=== PATIENT | male | born 1985 | race Caucasian/White ===

== ENCOUNTER 2018-10-25 16:15 | Emergency (ER) | payer MEDICAID ==
[~2018-10-25] VITALS: Ht 182.9 cm; Wt 70.5 kg
[2018-10-25 16:25] VITALS: Ht 182.9 cm; Wt 70.5 kg
[2018-10-25] MEDS ORDERED: ATIVAN1 MG PO ×2 (16:27→19:48)
[2018-10-25 16:52] LABS: BASOPHILS 0.2 % (0-2); EOSINOPHILS 0 % (0-7); HEMATOCRIT 41.6 % (42.0-54.0); HEMOGLOBIN 14.8 g/dL (13.5-17.5); IMMATURE GRANULOCYTES 0.2 % (0-5); MCHC 35.6 g/dL (31.0-37.0); MCV 92.9 fL (80.0-100.0); MEAN PLATELET VOLUME 9.4 fL (7.4-10.4); MONOCYTES 6.9 % (2-11); NEUTROPHILS 73.7 % (40-80); RBC 4.48 10x6/uL (4.20-6.10); RDW 12.8 % (11.5-14.5); WBC 9.7 10x3/uL (4.8-10.8)
[2018-10-25 17:01] LABS: PLATELET COUNT 248 10x3/uL (130-400)
[2018-10-25 17:13] LABS: ALKALINE PHOSPHATASE 121 U/L (46-116); ALT (SGPT) 17 U/L (10-68); BILIRUBIN - TOTAL 0.53 mg/dL (0.2-1.3); CALC OSMOLALITY 272 mosm/kg (275-300); CALCIUM 9.1 mg/dL (8.5-10.1); CARBON DIOXIDE 27.2 mmol/L (21.0-32.0); CHLORIDE - SERUM 97 mmol/L (98-107); CREATININE - SERUM 0.9 mg/dL (0.6-1.3); GLUCOSE 88 mg/dL (74-106); POTASSIUM - SERUM 4.1 mmol/L (3.5-5.1); PROTEIN - SERUM 7.9 g/dL (6.4-8.2); SODIUM 136 mmol/L (136-145); UREA NITROGEN 19 mg/dL (7-18); eGFR NON AFRICAN AMERICAN > 90 mL/min (90-120)
[2018-10-25 18:30] LABS: UDS - AMPHET NEGATIVE QUAL (NEGATIVE); UDS - BARB NEGATIVE QUAL (NEGATIVE); UDS - BENZO NEGATIVE QUAL (NEGATIVE); UDS - COCAINE NEGATIVE QUAL (NEGATIVE); UDS - OPIATE NEGATIVE QUAL (NEGATIVE); UDS - PCP NEGATIVE QUAL (NEGATIVE); UDS - THC NEGATIVE QUAL (NEGATIVE)
[2018-10-25 18:49] LABS: APPEARANCE CLEAR (CLEAR); COLOR YELLOW (YELLOW); GLUCOSE NEGATIVE (NEGATIVE); KETONE MODERATE mg/dL (NEGATIVE); NITRITE NEGATIVE (NEGATIVE); PROTEIN TRACE mg/dL (NEGATIVE)
[2018-10-25 18:50] LABS: BACTERIA FEW /hpf (NONE SEEN); BILIRUBIN NEGATIVE (NEGATIVE); EPITHELIAL CELLS 0-5 /hpf (0-5); RED CELLS - URINE 0-5 /hpf (0-5); UROBILINOGEN NORMAL (NORMAL); WHITE CELLS - URINE 0-5 /hpf (0-5)
[2018-10-25 18:51] LABS: MUCUS <1+ /lpf (NONE SEEN)
[2018-10-25] MEDS ORDERED: PHENERGAN25 M1 PO (19:48)
[2018-10-25] MEDS ORDERED: TORADOL10 MG PO (19:48)
[2018-10-25 20:05] VITALS: BP 136/86
[2018-11-01] MEDS ORDERED: ZYRTEC10 MG PO (14:46)
[2018-11-01] MEDS ORDERED: THEREMS-M1 TAB PO (14:46)
[2018-11-01] MEDS ORDERED: IBUPROFEN800 MG PO (14:46)
== END 2018-10-25 20:05 | disposition home or self-care (01) ==
LOC: D.ER 16:15
PROVIDERS: Emergency Medicine
DX: S62.307A Unspecified fracture of fifth metacarpal bone, left hand, initial encounter for closed fracture (principal)

== ENCOUNTER 2018-11-02 08:51 | Day surgery (SDC) | payer MEDICAID ==
[~2018-11-02 08:51] MED LIST: ATIVAN1 MG PO; IBUPROFEN800 MG PO; PHENERGAN25 M1 PO; THEREMS-M1 TAB PO; TORADOL10 MG PO; ZYRTEC10 MG PO
[2018-11-02] MEDS ORDERED: CYMBALTA30 MG PO (09:33)
[2018-11-02] MEDS ORDERED: ZANAFLEX4 MG PO (09:34)
[2018-11-02 09:35] LABS: HEMOGLOBIN 13.6 g/dL (13.5-17.5); MCH 32.9 pg (26.0-34.0); MCV 96.9 fL (80.0-100.0); MEAN PLATELET VOLUME 10.1 fL (7.4-10.4); RBC 4.13 10x6/uL (4.20-6.10); RDW 13.5 % (11.5-14.5); WBC 5.6 10x3/uL (4.8-10.8)
[2018-11-02 09:41] VITALS: BP 112/65; BMI 21.8
[2018-11-02 10:11] LABS: ALBUMIN 3.9 g/dL (3.4-5.0); ALKALINE PHOSPHATASE 83 U/L (46-116); ALT (SGPT) 21 U/L (10-68); CALC OSMOLALITY 281 mosm/kg (275-300); CALCIUM 8.8 mg/dL (8.5-10.1); CARBON DIOXIDE 26.4 mmol/L (21.0-32.0); CHLORIDE - SERUM 104 mmol/L (98-107); CREATININE - SERUM 1.1 mg/dL (0.6-1.3); GLUCOSE 84 mg/dL (74-106); POTASSIUM - SERUM 4.6 mmol/L (3.5-5.1); PROTEIN - SERUM 7.2 g/dL (6.4-8.2); SODIUM 139 mmol/L (136-145); UREA NITROGEN 26 mg/dL (7-18); eGFR NON AFRICAN AMERICAN 81 mL/min (90-120)
[2018-11-02] MEDS ORDERED: PERCOCET 5-3251 TAB PO (14:08)
[2018-11-02] MEDS ORDERED: DURICEF500 MG PO (14:09)
--- NOTE | 2018-11-02 20:18 | OP ---
PATIENT NAME: JED GIANG MEDICAL RECORD: [id number] :83 LOCATION:[facility] ADMISSION DATE: SURGEON: JEREL ROJAS DO DATE OF OPERATION: 11/02/2018 PROCEDURE PERFORMED: Left fifth metacarpal base open reduction internal fixation. PREOPERATIVE DIAGNOSIS: Displaced angulated left fifth metacarpal base fracture. POSTOPERATIVE DIAGNOSIS: Displaced angulated left fifth metacarpal base fracture. INDICATIONS: Mr. Giang presented to my clinic with a left fifth metacarpal base fracture and it was displaced and angulated. 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 He wanted it fixed and was aware of the risks and benefits including damage to the ulnar nerve, sensory nerve, bleeding, infection, damage to other vessels in the area and nerves, nonunion, malunion, need for further surgery, continued malrotation of the small finger and he signed the consent. SURGEON: Jerel Rojas DO DESCRIPTION OF PROCEDURE: The patient was given a block by anesthesia preoperatively, taken to the operative suite, laid in supine position, given general anesthetic, LMA was placed, given 2 grams of Ancef preoperatively. The left upper extremity was then prepped and draped in sterile fashion. Timeout was performed. Everyone was in agreeance with the correct side, site, patient, and procedure. The left upper extremity was then exsanguinated with an Esmarch and tourniquet was inflated to 250 mmHg and was up for 23 minutes throughout the procedure. The incision was then marked out over the base of the fifth metacarpal and a 15-blade was used to cut through the skin and then a pickup and scissors were used to dissect down to the fracture itself. Once the fracture was identified, it was reduced. A plate was used, [employer] plate, 5-hole plate. The fracture was held reduced and then the drill was put through the plate proximally first and then a screw was put into that and then distally into the shaft. X-rays were taken to confirm good alignment and good placement of the screws and the plate, and then the rest of the screws were put in. The original screw proximally was then exchanged out for a locking screw and the last hole locking screw was put in that. A total of 2 locking screws and 3 cortical screws. The x-rays were taken and confirmed good alignment on AP and lateral as well as screw length. The tourniquet was then let down and the site was closed with 3-0 Vicryl in an inverted interrupted fashion and 5-0 Monocryl ran on the skin. Steri-Strips were placed over that. An Adaptic, 4 x 4s and cast padding was placed on that, and then the patient was placed in an ulnar gutter splint. He was awakened and taken to recovery in stable condition. Blood loss was approximately 20 mL. COMPLICATIONS: None. TRANSINT:[id number] Voice Confirmation ID: [id number] DOCUMENT ID: [id number] OPERATIVE REPORT [id number] JED GIANG,JEREL Dubon DO at 2018 CC: [id number] DICTATION DATE: 11/02/18 1404 [employer] INSPECTOR: 11/02/18 1444 [facility] 11/02/18 [id number] [place] [address]
== END 2018-11-02 16:05 | disposition home or self-care (01) ==
LOC: D.OPS 08:51 → D.PAN 11:00 → D.OPS 12:00 → D.PAN 12:30 → D.OPS 16:05
PROVIDERS: Anesthesiology; ATTEND Orthopaedic Surgery
DX: S62.317A Displaced fracture of base of fifth metacarpal bone, left hand, initial encounter for closed fracture (principal)

== ENCOUNTER 2019-05-27 14:31 | Inpatient (IN) | payer MEDICAID ==
[~2019-05-27] VITALS: Ht 152.4 cm; Wt 65.7 kg
[~2019-05-27 14:31] MED LIST changes: +CYMBALTA30 MG PO; +DURICEF500 MG PO; +PERCOCET 5-3251 TAB PO; +ZANAFLEX4 MG PO
[2019-05-27 15:16] LABS: BASOPHILS 0.1 % (0-2); EOSINOPHILS 0 % (0-7); HEMATOCRIT 43.4 % (42.0-54.0); HEMOGLOBIN 15.7 g/dL (13.5-17.5); IMMATURE GRANULOCYTES 0.8 % (0-5); LYMPHOCYTES 2.4 % (15-50); MCH 34.5 pg (26.0-34.0); MCHC 36.2 g/dL (31.0-37.0); MCV 95.4 fL (80.0-100.0); MEAN PLATELET VOLUME 10.5 fL (7.4-10.4); MONOCYTES 3.4 % (2-11); NEUTROPHILS 93.3 % (40-80); RBC 4.55 10x6/uL (4.20-6.10); RDW 12.7 % (11.5-14.5)
[2019-05-27 15:18] LABS: PLATELET COUNT 177 10x3/uL (130-400)
[2019-05-27 15:29] LABS: APPEARANCE CLEAR (CLEAR); BILIRUBIN NEGATIVE (NEGATIVE); COLOR YELLOW (YELLOW); GLUCOSE 500 mg/dL (NEGATIVE); KETONE NEGATIVE (NEGATIVE); NITRITE NEGATIVE (NEGATIVE); PROTEIN 2+ mg/dL (NEGATIVE); SPECIFIC GRAVITY 1.015 (1.005-1.020); UROBILINOGEN NORMAL (NORMAL)
[2019-05-27 15:30] LABS: BACTERIA MODERATE /hpf (NEGATIVE); EPITHELIAL CELLS 0-5 /hpf (0-5); RED CELLS - URINE 0-5 /hpf (0-5); WHITE CELLS - URINE 0-5 /hpf (NEGATIVE)
[2019-05-27 15:31] LABS: AMORPHOUS SEDIMENT >1+ /lpf (NONE SEEN); GRANULAR CAST 0-5 /lpf (NONE SEEN); MUCUS >1+ /lpf (NONE SEEN)
[2019-05-27 15:40] LABS: CALC OSMOLALITY 254 mosm/kg (275-300); CARBON DIOXIDE 20.8 mmol/L (21.0-32.0); CHLORIDE - SERUM 87 mmol/L (98-107); POTASSIUM - SERUM 3.7 mmol/L (3.5-5.1); SODIUM 126 mmol/L (136-145); UREA NITROGEN 11 mg/dL (7-18); eGFR NON AFRICAN AMERICAN 90 mL/min (90-120)
[2019-05-27 15:46] LABS: UDS - AMPHET NEGATIVE QUAL (NEGATIVE); UDS - BARB NEGATIVE QUAL (NEGATIVE); UDS - BENZO NEGATIVE QUAL (NEGATIVE); UDS - COCAINE NEGATIVE QUAL (NEGATIVE); UDS - OPIATE NEGATIVE QUAL (NEGATIVE); UDS - PCP NEGATIVE QUAL (NEGATIVE); UDS - THC NEGATIVE QUAL (NEGATIVE)
[2019-05-27 15:46] LABS: GLUCOSE 157 mg/dL (74-106)
[2019-05-27 15:49] LABS: ALBUMIN 3.2 g/dL (3.4-5.0); ALKALINE PHOSPHATASE 161 U/L (46-116); ALT (SGPT) 21 U/L (10-68); AMYLASE - SERUM 20 U/L (25-115); PROTEIN - SERUM 8.1 g/dL (6.4-8.2)
[2019-05-27 15:57] LABS: LIPASE 46 U/L (73-393)
--- NOTE | 2019-05-27 18:24 | NUR ---
TRANSFER FROM ER BY STRETCHER. OREINTED TO ROOM. CALL LIGHT IN REACH. WILL CONT. PLAN OF CARE.
[2019-05-27] MEDS ORDERED: IBUPROFEN800 MG PO (18:36)
--- NOTE | 2019-05-27 20:12 | NUR ---
REPORT RECIEVED AND ROUNDING COMPLETE. PATIENT SITTING UP IN BED IN HIGH FOWLERS POSITION. PATIENT STATES HE IS READY TO GET SOME SLEEP. PATIENT SHOWING NO S/SX OF DISTRESS AT THIS TIME. CALL LIGHT WITHIN REACH AND BED IN LOWEST LOCKED POSITION. PATIENT HAS FAMILY AT BEDSIDE AT THIS TIME. PATIENT STATES HE HAS NO NEEDS AT THIS TIME.
[2019-05-27 21:27] LABS: APTT 40.1 SECONDS (22.8-39.4); INR 1.05 (0.85-1.17); PROTIME 13.2 SECONDS (11.6-15.0)
[2019-05-27 21:28] LABS: D-DIMER-QUANTITATIVE 1.86 ug/mLFEU (0.20-0.54)
[2019-05-28 00:49] VITALS: BP 108/72
[2019-05-28 02:45] VITALS: Ht 152.4 cm; Wt 65.7 kg
[2019-05-28 05:14] LABS: BASOPHILS 0.1 % (0-2); EOSINOPHILS 0 % (0-7); IMMATURE GRANULOCYTES 0.6 % (0-5); MCH 33.3 pg (26.0-34.0); MCHC 35.1 g/dL (31.0-37.0); MCV 94.9 fL (80.0-100.0); MEAN PLATELET VOLUME 10.2 fL (7.4-10.4); MONOCYTES 6.3 % (2-11); PLATELET COUNT 161 10x3/uL (130-400); RBC 3.69 10x6/uL (4.20-6.10); RDW 12.7 % (11.5-14.5); WBC 15.7 10x3/uL (4.8-10.8)
[2019-05-28 05:27] LABS: HEMOGLOBIN 12.3 g/dL (13.5-17.5)
[2019-05-28 05:29] LABS: APTT 37.7 SECONDS (22.8-39.4); INR 1.08 (0.85-1.17); PROTIME 13.5 SECONDS (11.6-15.0)
[2019-05-28 05:38] VITALS: BP 112/80
[2019-05-28 06:03] LABS: ALBUMIN 2.1 g/dL (3.4-5.0); ALKALINE PHOSPHATASE 113 U/L (46-116); ALT (SGPT) 12 U/L (10-68); BILIRUBIN - TOTAL 0.34 mg/dL (0.2-1.3); CALC OSMOLALITY 265 mosm/kg (275-300); CALCIUM 8.4 mg/dL (8.5-10.1); CARBON DIOXIDE 20.7 mmol/L (21.0-32.0); CHLORIDE - SERUM 99 mmol/L (98-107); CREATININE - SERUM 0.8 mg/dL (0.6-1.3); GLUCOSE 110 mg/dL (74-106); MAGNESIUM - SERUM 2.5 mg/dL (1.8-2.4); PHOSPHOROUS 1.9 mg/dL (2.5-4.9); POTASSIUM - SERUM 3.9 mmol/L (3.5-5.1); PROTEIN - SERUM 6.5 g/dL (6.4-8.2); SODIUM 132 mmol/L (136-145); UREA NITROGEN 12 mg/dL (7-18); eGFR NON AFRICAN AMERICAN > 90 mL/min (90-120)
--- NOTE | 2019-05-28 06:03 | NUR ---
I have reviewed this patient and I concur with the Shift Assessment completed by the Licensed Practical Nurse today this shift.
--- NOTE | 2019-05-28 07:20 | NUR ---
RECIEVED REPORT. RESTING IN BED WITH EYES CLOSED. SPOUSE AT BEDSIDE. NO SIGNS OF DISTRESS. CONTINUE PLAN OF CARE AND SAFETY PRECAUTIONS.
[2019-05-28 07:59] VITALS: BP 128/86
[2019-05-28 11:45] VITALS: BP 127/87
[2019-05-28 15:25] VITALS: BP 125/88
--- NOTE | 2019-05-28 16:54 | NUR ---
ALERT AND ORIENTED X4. SHOWER AND LINEN CHANGE COMPLETE. DENIES ANY NEEDS. DENIES SOB OR PAIN. CONTINUE PLAN OF CARE AND SAFETY PRECAUTIONS.
[2019-05-28 20:30] VITALS: BP 125/94
[2019-05-29 00:31] VITALS: BP 127/92
--- NOTE | 2019-05-29 03:17 | NUR ---
I have reviewed this patient and I concur with the Shift Assessment completed by the Licensed Practical Nurse today this shift.
[2019-05-29 04:31] VITALS: BP 122/90
[2019-05-29 05:40] LABS: BASOPHILS 0.2 % (0-2); EOSINOPHILS 0.7 % (0-7); HEMATOCRIT 34.1 % (42.0-54.0); HEMOGLOBIN 11.7 g/dL (13.5-17.5); IMMATURE GRANULOCYTES 1.5 % (0-5); LYMPHOCYTES 11.8 % (15-50); MCH 32.9 pg (26.0-34.0); MCHC 34.3 g/dL (31.0-37.0); MCV 95.8 fL (80.0-100.0); MONOCYTES 12.6 % (2-11); NEUTROPHILS 73.2 % (40-80); PLATELET COUNT 177 10x3/uL (130-400); RBC 3.56 10x6/uL (4.20-6.10)
[2019-05-29 05:41] LABS: WBC 9.6 10x3/uL (4.8-10.8)
[2019-05-29 05:50] LABS: ALBUMIN 1.9 g/dL (3.4-5.0); ALKALINE PHOSPHATASE 100 U/L (46-116); BILIRUBIN - TOTAL 0.23 mg/dL (0.2-1.3); CALC OSMOLALITY 270 mosm/kg (275-300); CALCIUM 7.9 mg/dL (8.5-10.1); CARBON DIOXIDE 23.7 mmol/L (21.0-32.0); CHLORIDE - SERUM 103 mmol/L (98-107); CREATININE - SERUM 0.7 mg/dL (0.6-1.3); GLUCOSE 107 mg/dL (74-106); MAGNESIUM - SERUM 2.2 mg/dL (1.8-2.4); PHOSPHOROUS 1.9 mg/dL (2.5-4.9); POTASSIUM - SERUM 3.4 mmol/L (3.5-5.1); PROTEIN - SERUM 6.1 g/dL (6.4-8.2); SODIUM 136 mmol/L (136-145); UREA NITROGEN 11 mg/dL (7-18); eGFR NON AFRICAN AMERICAN > 90 mL/min (90-120)
[2019-05-29 05:52] LABS: ALT (SGPT) 17 U/L (10-68)
--- NOTE | 2019-05-29 07:05 | NUR ---
RESTING WITH EASE RESP EVEN WITHOUT LABOR AROUSED WHEN I OPENED HIS DOOR THEN RETURNED TO SLEEP. BED IN LOWEST POSITION AND LOCKED CAREPLAN REVIEW DONE WITH SAFETY PRECAUTIONS NOTED CL IN REACH LEFT F/A IV INFUSING NS AT 100CC/HR SITE IS CLEAR
[2019-05-29 09:36] VITALS: BP 131/85
[2019-05-29 12:22] VITALS: BP 134/91
--- NOTE | 2019-05-29 13:40 | MORECARE ---
CASE MANAGEMENT DISCHARGE SUMMARY PATIENT: JED BETH UNIT: [id number] ADM DATE: 05/27/19 AGE: 34 : 83 SEX: M ROOM/BED: D.6343 AUTHOR: TAMRADOC PHYSICIAN: REFERRING PHYSICIAN: JEREL BIRCH MD DATE OF SERVICE: 05/29/19 Discharge Plan Patient Name: JED BETH Facility: [facility]:[place] : 1985 Planned Disposition: Home Anticipated Discharge Date: 05/31/19 Discharge Date: Expected LOS: 4 Initial Reviewer: [email or web address] Initial Review Date: 05/27/2019 Generated: 05/29/19 2:40 pm Comments DCP- Discharge Planning Updated by [email or web address]: Sherita Westbrook on 05/29/19 12:[address] DC PLAN: Return home independently with sig other. ANTICIPATED DC NEEDS: Denied known dc needs. CM met with patient to complete initial dc planning assessment. CM educated patient on the CM role and verbal consent given by patient to complete assessment. CM verified patient's address, phone number, and emergency contact phone numbers. Patient lives at home independently with his significant other. At discharge patient plans to return home and feels this is a safe discharge. CM discussed availability of home health, rehab services, and medical equipment. Patient denied known discharge needs at this time. Patient reports his sig other will transport him home at time of discharge. CM will continue to follow and will assist as needed with dc plans/needs. hSerita Westbrook RN, [facility] DCPIA - Discharge Planning Initial Assessment Updated by [email or web address]: Sherita Westbrook on 05/29/19 1:37 pm * Is the patient Alert and Oriented? Yes * How many steps to enter\exit or inside your home? One * PCP No PCP * Pharmacy [facility] * Preadmission Environment Home with Family * ADLs Independent * Equipment None * List name and contact numbers for known caregivers / representatives who currently or will assist patient after discharge: Yadira Peters - sig other - [phone] * Verbal permission to speak to the caregivers and representatives has been obtained from the patient. Yes * Community resources currently utilized None * Additional services required to return to the preadmission environment? No * Can the patient safely return to the preadmission environment? Yes * Has this patient been hospitalized within the prior 30 days at any hospital? No Patient Name: JED BETH Page [id number] at 1340 All edits/amendments must be made on the electronic document DICTATION DATE: 05/29/19 1340 PEDIATRIC ALLERGIST: BONNIE 05/29/19 1340 RPT#: [id number] DC DATE: STATUS: ADM IN [facility] [address] [place] [address] END OF REPORT
[2019-05-29 16:00] VITALS: BP 146/93
--- NOTE | 2019-05-29 19:36 | NUR ---
PT SITTING UP IN BED ALERT AND ORIENTED X4. NO S/S OF DISTRESS. PT DENIES ANY PAIN OR NEEDS AT THIS TIME. BED LOW CALL LIGHT WITHIN REACH. WILL CONTINUE TO MONITOR.
[2019-05-29 20:21] VITALS: BP 137/98
[2019-05-30 00:13] VITALS: BP 118/79
--- NOTE | 2019-05-30 03:09 | NUR ---
PT RESTING IN BED WITH EYES CLOSED. RR EVEN AND UNLABORED. AT BEDSIDE. BED LOW CALL LIGHT WITHIN REACH. WILL CONTINUE TO MONITOR.
[2019-05-30 04:45] VITALS: BP 131/76
[2019-05-30 05:55] LABS: BASOPHILS 0.2 % (0-2); EOSINOPHILS 1.4 % (0-7); HEMATOCRIT 35.9 % (42.0-54.0); HEMOGLOBIN 12.5 g/dL (13.5-17.5); IMMATURE GRANULOCYTES 2.4 % (0-5); LYMPHOCYTES 15.4 % (15-50); MCH 33.3 pg (26.0-34.0); MCHC 34.8 g/dL (31.0-37.0); MCV 95.7 fL (80.0-100.0); MEAN PLATELET VOLUME 10.4 fL (7.4-10.4); MONOCYTES 12.8 % (2-11); NEUTROPHILS 67.8 % (40-80); RBC 3.75 10x6/uL (4.20-6.10); RDW 13.2 % (11.5-14.5); WBC 10.5 10x3/uL (4.8-10.8)
[2019-05-30 06:00] LABS: PLATELET COUNT 246 10x3/uL (130-400)
[2019-05-30 06:20] LABS: ALKALINE PHOSPHATASE 105 U/L (46-116); CARBON DIOXIDE 25.2 mmol/L (21.0-32.0); CHLORIDE - SERUM 104 mmol/L (98-107); CREATININE - SERUM 0.6 mg/dL (0.6-1.3); GLUCOSE 88 mg/dL (74-106); MAGNESIUM - SERUM 2.1 mg/dL (1.8-2.4); POTASSIUM - SERUM 3.5 mmol/L (3.5-5.1); PROTEIN - SERUM 6.3 g/dL (6.4-8.2); SODIUM 137 mmol/L (136-145); eGFR NON AFRICAN AMERICAN > 90 mL/min (90-120)
[2019-05-30 06:21] LABS: ALT (SGPT) 36 U/L (10-68); CALC OSMOLALITY 270 mosm/kg (275-300); PHOSPHOROUS 2.8 mg/dL (2.5-4.9); UREA NITROGEN 7 mg/dL (7-18)
--- NOTE | 2019-05-30 06:50 | NUR ---
REPORT RECEIVED. ALERT ABLE TO VOICE NEEDS DRY COUGH AT TIMES. FAMILY AT BEDSIDE. IV INFUSING IN LEFT WRIST SITE CLEAR DENIES ANY CURRENT NEEDS RESP EVEN WITHOUT LABOR. BED IN LOWEST POSITION AND LOCKED CAREPLAN REVIEW DONE WITH SAFETY PRECAUTIONS IN PLACE
[2019-05-30 09:36] VITALS: BP 139/87
[2019-05-30 10:10] LABS: IMMUNOGLOBULIN A 136 mg/dL (90-386); IMMUNOGLOBULIN G 524 mg/dL (700-1600)
[2019-05-30 13:17] VITALS: BP 130/85
[2019-05-30 17:27] VITALS: BP 131/90
[2019-05-30 19:00] VITALS: BP 131/78
--- NOTE | 2019-05-30 22:13 | NUR ---
PT HAS BEEN SLEEPING ALL SHIFT BUT HAS EASILY AWAKEN DENIES NEEDS
[2019-05-31] VITALS: BP 121/70
[2019-05-31 04:00] VITALS: BP 124/88
[2019-05-31 04:34] LABS: HEMOGLOBIN 12.1 g/dL (13.5-17.5); MCH 33.2 pg (26.0-34.0); MCHC 34.6 g/dL (31.0-37.0); MCV 95.9 fL (80.0-100.0); MEAN PLATELET VOLUME 9.6 fL (7.4-10.4); RBC 3.65 10x6/uL (4.20-6.10); RDW 13.2 % (11.5-14.5)
[2019-05-31 04:54] LABS: PLATELET COUNT 297 10x3/uL (130-400); WBC 13.8 10x3/uL (4.8-10.8)
--- NOTE | 2019-05-31 04:57 | NUR ---
I have reviewed this patient and I concur with the Shift Assessment completed by the Licensed Practical Nurse today this shift.
[2019-05-31 04:59] LABS: ALBUMIN 2.1 g/dL (3.4-5.0); ALKALINE PHOSPHATASE 101 U/L (46-116); ALT (SGPT) 35 U/L (10-68); BILIRUBIN - TOTAL 0.27 mg/dL (0.2-1.3); CALC OSMOLALITY 273 mosm/kg (275-300); CALCIUM 7.8 mg/dL (8.5-10.1); CHLORIDE - SERUM 104 mmol/L (98-107); GLUCOSE 97 mg/dL (74-106); MAGNESIUM - SERUM 2.2 mg/dL (1.8-2.4); POTASSIUM - SERUM 3.3 mmol/L (3.5-5.1); PROTEIN - SERUM 6.3 g/dL (6.4-8.2); SODIUM 138 mmol/L (136-145); UREA NITROGEN 8 mg/dL (7-18)
[2019-05-31 05:01] LABS: CREATININE - SERUM 0.8 mg/dL (0.6-1.3); PHOSPHOROUS 3.7 mg/dL (2.5-4.9); eGFR NON AFRICAN AMERICAN > 90 mL/min (90-120)
--- NOTE | 2019-05-31 07:00 | NUR ---
REPORT RECEIVED. HE IS SITTING SUPINE IN BED WITH HOB UP. CL IN REACH RESP EVEN WITHOUT LABOR. BED IN LOWEST POSITION AND LOCKED. CAREPLAN REVIEW DONE WITH SAFETY PRECAUTIONS IN PLACE. NO COUGHING AT THIS TIME, HE STATES HE SLEPT BETTER LAST NIGHT
[2019-05-31 08:50] LABS: LYMPHOCYTES 11 % (15-50); MONOCYTES 12 % (2-11); NEUTROPHILS 65 % (40-80)
[2019-05-31 08:51] LABS: PLATELET ESTIMATE NORMAL; ROULEAUX OCC; SMUDGE CELLS OCC
[2019-05-31 09:51] VITALS: BP 118/74
[2019-05-31 20:00] VITALS: BP 134/66
[2019-06-01] VITALS: BP 146/96
[2019-06-01 04:00] VITALS: BP 139/85
[2019-06-01 05:25] LABS: BASOPHILS 0.5 % (0-2); EOSINOPHILS 0 % (0-7); HEMATOCRIT 36.7 % (42.0-54.0); HEMOGLOBIN 12.5 g/dL (13.5-17.5); IMMATURE GRANULOCYTES 10.1 % (0-5); LYMPHOCYTES 18.9 % (15-50); MCH 33.4 pg (26.0-34.0); MCHC 34.1 g/dL (31.0-37.0); MEAN PLATELET VOLUME 9.7 fL (7.4-10.4); MONOCYTES 8.2 % (2-11); NEUTROPHILS 62.3 % (40-80); RBC 3.74 10x6/uL (4.20-6.10); RDW 13.8 % (11.5-14.5); WBC 13.1 10x3/uL (4.8-10.8)
[2019-06-01 05:31] LABS: MCV 98.1 fL (80.0-100.0); PLATELET COUNT 387 10x3/uL (130-400)
[2019-06-01 05:39] LABS: ALBUMIN 2.3 g/dL (3.4-5.0); ALKALINE PHOSPHATASE 97 U/L (46-116); ALT (SGPT) 32 U/L (10-68); BILIRUBIN - TOTAL 0.29 mg/dL (0.2-1.3); CALC OSMOLALITY 272 mosm/kg (275-300); CALCIUM 8.3 mg/dL (8.5-10.1); CARBON DIOXIDE 26.9 mmol/L (21.0-32.0); CHLORIDE - SERUM 101 mmol/L (98-107); CREATININE - SERUM 0.8 mg/dL (0.6-1.3); GLUCOSE 94 mg/dL (74-106); MAGNESIUM - SERUM 2.2 mg/dL (1.8-2.4); PHOSPHOROUS 3.7 mg/dL (2.5-4.9); PROTEIN - SERUM 6.6 g/dL (6.4-8.2); SODIUM 137 mmol/L (136-145); UREA NITROGEN 10 mg/dL (7-18); eGFR NON AFRICAN AMERICAN > 90 mL/min (90-120)
[2019-06-01 05:40] LABS: POTASSIUM - SERUM 4.4 mmol/L (3.5-5.1)
--- NOTE | 2019-06-01 07:00 | NUR ---
RECIEVED REPORT. ASSUMED CARE OF PATIENT. RESTING IN BED IN PRONE POSITION WITH EYES CLOSED, EASILY AROUSED. NO VISITORS AT BEDSIDE. CALL LIGHT WITHIN REACH. NO DISTRESS. IV FLUIDS INFUSING ORDERED.
--- NOTE | 2019-06-01 07:49 | NUR ---
RADIOLOGY AT BEDSIDE FOR CXR. NO DISTRESS.
[2019-06-01 09:39] VITALS: BP 144/87
--- NOTE | 2019-06-01 12:04 | NUR ---
MEDICATED WITH ATIVAN AT THIS TIME FOR DT SYMPTOMS. NO DISTRESS. CALL LIGHT WITHIN REACH.
--- NOTE | 2019-06-01 12:12 | NUR ---
THIS FORGE PRESS OPERATOR HAS NOT HAD A LENGTHY CONVERSATION REGARDING PATIENT DOCUMENTED.
[2019-06-01 13:40] VITALS: BP 139/96
[2019-06-01] MEDS ORDERED: OMNICEF300 MG PO (16:14)
[2019-06-01] MEDS ORDERED: Levaquin PO (16:15)
[2019-06-01] MEDS ORDERED: LEVAQUIN750 MG PO (16:16)
[2019-06-01 16:38] VITALS: BP 141/97
--- NOTE | 2019-06-01 17:05 | NUR ---
TELEMETRY REMOVED 20 GAUGE IV REMOVED FROM LEFT FOREARM. CATHETER TIP INTACT. NO BLEEDING FROM SITE. 2X2 GAUZE APPLIED AND SECURED WITH BANDAID. NO DISTRESS. PATIENT IS DISCHARGING TO HOME.
[2019-06-01 17:08] LABS: IMMUNOGLOBULIN E 319 IU/mL (6-495)
[2019-06-01] MEDS ORDERED: MUCINEX DM ER1 EAC1 PO (17:23)
[2019-06-01] MEDS ORDERED: IPRAT-ALBUT 0.5-3 ML UPD (17:23)
[2019-06-01] MEDS ORDERED: TESSALON PERLE100 MG PO (17:24)
[2019-06-01] MEDS ORDERED: ALBUTEROL SULF8.5 GM INH (17:24)
--- NOTE | 2019-06-01 17:57 | NUR ---
DISCHARGE INSTRUCTIONS PROVIDED TO PATIENT AND FEMALE AT BEDSIDE AT THIS TIME. PATIENT VERBALIZED UNDERSTANDING OF ALL INSTRUCTIONS PROVIDED. PATIENT IS WAITING [employer] TO DELIVER HIS NEBULIZER MACHINE AND THEN HE IS ABLE TO LEAVE HOSPITAL. PATIENT IS AWARE HE CAN LEAVE AFTER RECEIVING DME EQUIPMENT.
--- NOTE | 2019-06-01 18:20 | NUR ---
[employer] DELIVERED NEBULIZER TX. PATIENT HAS NEBULIZER MACHINE AND IS NOW LEAVING UNIT WITH ALL PERSONAL BELONGINGS. PATIENT IS DISCHARGED TO HOME IN STABLE CONDITION. NO DISTRESS.
--- NOTE | 2019-06-02 17:37 | MORECARE ---
CASE MANAGEMENT DISCHARGE SUMMARY PATIENT: JED BETH UNIT: [id number] ADM DATE: 05/27/19 AGE: 34 : 83 SEX: M ROOM/BED: D.5073 AUTHOR: TAMRADOC PHYSICIAN: REFERRING PHYSICIAN: JEREL BIRCH MD DATE OF SERVICE: 06/02/19 Discharge Plan Patient Name: JED BETH Facility: [facility]:[place] : 1985 Planned Disposition: Home Anticipated Discharge Date: 05/31/19 Discharge Date: 06/01/2019 Expected LOS: 4 Initial Reviewer: [email or web address] Initial Review Date: 05/27/2019 Generated: 06/02/19 6:37 pm DCP- Discharge Planning Updated by [email or web address]: Sherita Westbrook on 05/29/19 12:[address] DC PLAN: Return home independently with sig other. ANTICIPATED DC NEEDS: Denied known dc needs. CM met with patient to complete initial dc planning assessment. CM educated patient on the CM role and verbal consent given by patient to complete assessment. CM verified patient's address, phone number, and emergency contact phone numbers. Patient lives at home independently with his significant other. At discharge patient plans to return home and feels this is a safe discharge. CM discussed availability of home health, rehab services, and medical equipment. Patient denied known discharge needs at this time. Patient reports his sig other will transport him home at time of discharge. CM will continue to follow and will assist as needed with dc plans/needs. Sherita Westbrook RN, [facility] DCPIA - Discharge Planning Initial Assessment Updated by [email or web address]: Sherita Westbrook on 05/29/19 1:37 pm * Is the patient Alert and Oriented? Yes * How many steps to enter\exit or inside your home? One * PCP No PCP * Pharmacy [facility] * Preadmission Environment Home with Family * ADLs Independent * Equipment None * List name and contact numbers for known caregivers / representatives who currently or will assist patient after discharge: Yadira Peters - sig other - [phone] * Verbal permission to speak to the caregivers and representatives has been obtained from the patient. Yes * Community resources currently utilized None * Additional services required to return to the preadmission environment? No * Can the patient safely return to the preadmission environment? Yes * Has this patient been hospitalized within the prior 30 days at any hospital? No Coverage Notice Reviewer: [email or web address] Azalea Mullins Notice Issued Date-Time: 06/01/2019 17:13 Notice Type: Patient Choice Letter Notice Delivered To: Patient Relationship to Patient: Gang Worker Name: Delivery Method: HAND - Hand Delivered Kath Days: Prior Verbal Notification: Recipient Understood Notice: Yes Recipient Signature: Yes Med Rec Note Co-signed by Attending: Coverage Notice Comment: gracia DE LA GARZA export: 05/29/19 12:40 Patient Name: JED BETH Page [phone] at 1737 All edits/amendments must be made on the electronic document DICTATION DATE: 06/02/191735 MECHANICAL MAINTENANCE WORKER: BONNIE 06/02/191735 RPT#: [id number] DC DATE:06/01/19 STATUS: DIS IN [facility] [address] [place] [address] END OF REPORT
== END 2019-06-01 18:20 | disposition home or self-care (01) | DRG 178 ==
LOC: D.ER 14:31 → D.M2 16:33
PROVIDERS: Family Medicine; Family Medicine Adult Medicine; Internal Medicine Pulmonary Disease; ADMIT Family Medicine; ATTEND Family Medicine
DX: J15.6 Pneumonia due to other Gram-negative bacteria (principal); J44.0 Chronic obstructive pulmonary disease with (acute) lower respiratory infection; N39.0 Urinary tract infection, site not specified; E87.1 Hypo-osmolality and hyponatremia; R04.0 Epistaxis; K21.9 Gastro-esophageal reflux disease without esophagitis; D64.9 Anemia, unspecified; E83.39 Other disorders of phosphorus metabolism; J20.9 Acute bronchitis, unspecified; Z86.73 Personal history of transient ischemic attack (TIA), and cerebral infarction without residual deficits; Z72.89 Other problems related to lifestyle